=== PATIENT | male | born 1945 | race Hispanic/Latino ===

== ENCOUNTER 2022-12-05 11:00 | Outpatient (RCR) | payer MEDICARE ==
[~2022-12-05 11:00] MED LIST: ENBREL25 MG/0.5; FOLIC ACID1 MG PO; METHOTREXATE2.5 MG PO
[2022-12-05] MEDS ORDERED: MUPIROCIN 2% OINT 22 GM TUBE ONE (13:56)
== END 2022-12-18 ==
LOC: WCC 11:00
PROVIDERS: ATTEND Internal Medicine Infectious Disease
DX: L89.322 Pressure ulcer of left buttock, stage 2 (principal)